=== PATIENT | female | born 1985 ===

== ENCOUNTER 2017-07-14 11:48 | Outpatient (CLI) | payer OTHER ==
[~2017-07-14 11:48] MED LIST: INDOMETHACIN50 MG PO; LEVAQUIN500 MG PO; URETRON DS1 TAB PO; VOLTAREM 50 MG PO
== END 2017-07-14 11:52 | disposition home or self-care (01) ==
LOC: LAB 11:48
DX: R50.9 Fever, unspecified (principal)

== ENCOUNTER 2017-07-27 14:36 | Outpatient (CLI) | payer OTHER | END 2017-07-27 14:49 | disposition home or self-care (01) | LOC: LAB 14:36 | DX: K75.89 Other specified inflammatory liver diseases (principal) ==

== ENCOUNTER 2018-01-20 10:11 | Outpatient (CLI) | payer OTHER | END 2018-01-20 10:14 | disposition home or self-care (01) | LOC: LAB 10:11 | DX: N39.0 Urinary tract infection, site not specified (principal) ==